=== PATIENT | female | born 1995 | race Caucasian/White ===

== ENCOUNTER 2017-07-28 21:03 | Emergency (ER) | payer BC ==
[~2017-07-28] VITALS: Ht 160 cm; Wt 63.6 kg
[~2017-07-28 21:03] MED LIST: MACROBID 1100 MG/CAP PO
[2017-07-28 21:08] VITALS: TEMP 97.4
[2017-07-28] MEDS ORDERED: BIRTH CONTROL (21:13)
[2017-07-28] MEDS ORDERED: DOXYCYCLINE 50M50 MG PO (21:13)
[2017-07-28] MEDS ORDERED: ROBINUL FORTE2 MG PO (21:14)
[2017-07-28 22:20] VITALS: BP 116/68; PULSE 70
== END 2017-07-28 22:23 | disposition home or self-care (01) ==
LOC: COL.ER 21:03
DX: S80.11XA Contusion of right lower leg, initial encounter (principal); Y04.2XXA Assault by strike against or bumped into by another person, initial encounter; Y92.219 Unspecified school as the place of occurrence of the external cause

== ENCOUNTER 2017-09-26 20:29 | Emergency (ER) | payer BC ==
[~2017-09-26] VITALS: Ht 160 cm; Wt 65.9 kg
[~2017-09-26 20:29] MED LIST changes: +BIRTH CONTROL; +DOXYCYCLINE 50M50 MG PO; +ROBINUL FORTE2 MG PO
[2017-09-26 20:48] VITALS: TEMP 99.9
[2017-09-26 21:03] LABS: BASO % 0.4 % (0.0-2.0); EOS # 0.1 (0.0-0.7); HEMOGLOBIN 15.6 g/dl (12.5-16.0); LYMPH # 2.4 (1.2-3.4); LYMPH % 34.3 % (20.0-51.0); MEAN CELL VOLUME 88 fl (80.0-100.0); MEAN CORPUSCULAR HEMOGLOBIN 29 pg (27.0-31.0); MEAN CORPUSCULAR HGB CONC 33 g/dl (33.0-37.0); MEAN PLATELET VOLUME 9.5 fl (7.4-10.4); MONO # 0.4 (0.1-0.6); MONO % 6.2 % (1.7-9.3); PLATELET COUNT 296 K/mm3 (130-400); RED BLOOD COUNT 5.35 M/mm3 (4.10-5.30); REDCELL DISTRIBUTION WIDTH-CV 11.8 % (11.5-14.5)
[2017-09-26 21:11] LABS: BILIRUBIN,TOTAL 0.6 mg/dL (0.0-1.0); C-REACTIVE PROTEIN 0.7 mg/dL (0.0-0.9); CALCIUM 9.7 mg/dL (8.4-10.2); CREATININE, serum 0.65 mg/dL (0.52-1.25); POTASSIUM 3.5 mmol/L (3.4-5.0); TOTAL PROTEIN 9.9 gm/dL (6.4-8.2)
[2017-09-26 21:27] LABS: COLLECTION METHOD CLEAN CATCH
[2017-09-26 21:46] LABS: MUCOUS Present /lpf; PH 7 (5-8); URINE APPEARANCE Clear; URINE BACTERIA Rare /hpf; URINE BILIRUBIN Negative (NEGATIVE); URINE BLOOD 1+ (NEGATIVE); URINE COLOR Yellow; URINE GLUCOSE Negative (NEGATIVE); URINE KETONE 1+ (NEGATIVE); URINE LEUKOCYTE ESTERASE 2+ (NEGATIVE); URINE NITRATE Negative (NEGATIVE); URINE PROTEIN(semi-quant) Negative (NEGATIVE); URINE UROBILINOGEN Negative (NEGATIVE)
[2017-09-26] MEDS ORDERED: MACROBID 1100 MG/CAP PO (22:14)
[2017-09-26 23:47] VITALS: BP 128/79; PULSE 78
[2017-09-29] MEDS ORDERED: DIFLUCAN 100MG100 MG PO (13:38)
== END 2017-09-26 23:49 | disposition home or self-care (01) ==
LOC: COL.ER 20:29
PROVIDERS: Family Medicine
DX: N30.00 Acute cystitis without hematuria (principal); E86.0 Dehydration; R19.7 Diarrhea, unspecified
CPT/HCPCS: J0696; J2405; J7030; J7120

== ENCOUNTER 2017-10-02 12:02 | Emergency (ER) | payer BC ==
[~2017-10-02] VITALS: Ht 160 cm; Wt 65.9 kg
[~2017-10-02 12:02] MED LIST changes: +DIFLUCAN 100MG100 MG PO
[2017-10-02 12:05] VITALS: BP 130/89; TEMP 98.3
[2017-10-02 12:39] LABS: BASO % 0.3 % (0.0-2.0); EOS # 0.2 (0.0-0.7); EOS % 3.8 % (0-4.0); GRAN # 3.3 (1.4-6.5); GRAN % 54.6 % (42.2-75.2); HEMATOCRIT 42.5 % (37.0-47.0); HEMOGLOBIN 14.3 g/dl (12.5-16.0); LYMPH % 33.2 % (20.0-51.0); MEAN CELL VOLUME 88 fl (80.0-100.0); MEAN CORPUSCULAR HEMOGLOBIN 30 pg (27.0-31.0); MEAN CORPUSCULAR HGB CONC 34 g/dl (33.0-37.0); MEAN PLATELET VOLUME 9.7 fl (7.4-10.4); MONO # 0.5 (0.1-0.6); MONO % 7.9 % (1.7-9.3); PLATELET COUNT 281 K/mm3 (130-400); RED BLOOD COUNT 4.85 M/mm3 (4.10-5.30); REDCELL DISTRIBUTION WIDTH-CV 11.9 % (11.5-14.5)
[2017-10-02 13:18] VITALS: PULSE 74
== END 2017-10-02 13:19 | disposition home or self-care (01) ==
LOC: COL.ER 12:02
PROVIDERS: Physician Assistant
DX: K64.4 Residual hemorrhoidal skin tags (principal); Z87.448 Personal history of other diseases of urinary system; Z88.0 Allergy status to penicillin; Z88.1 Allergy status to other antibiotic agents